=== PATIENT | male | born 1980 | race Caucasian/White ===

== ENCOUNTER 2021-04-10 23:11 | Day surgery (SDCO) | payer OTHER ==
[~2021-04-10] VITALS: Ht 185.4 cm; Wt 117.3 kg
[~2021-04-10 23:11] MED LIST: FENOFIBRATE PO; FENOFIBRATE160 MG PO; LISINOPRIL PO; LOVAZA1 GM PO; METFORMIN PO; NORCO 5-325 TA1 EACH PO; SIMVASTATIN40 MG PO; TRESIBA FL100 UNIT/1 SC; [UNRECOGNIZED DRUG - OTHER] SC; phenergan PO
[2021-04-11 00:55] LABS: AMPHETAMINES NEGATIVE (NEGATIVE); BARBITURATES NEGATIVE (NEGATIVE); ECSTASY (MDMA) NEGATIVE (NEGATIVE); MARIJUANA (THC) NEGATIVE (NEGATIVE); METHADONE NEGATIVE (NEGATIVE); OPIATES NEGATIVE (NEGATIVE); OXYCODONE NEGATIVE (NEGATIVE)
[2021-04-11 00:58] LABS: BILIRUBIN NEGATIVE (NEGATIVE); BLOOD NEGATIVE Ery/uL (NEGATIVE); CLARITY CLEAR (CLEAR); COLOR YELLOW (YELLOW); GLUCOSE (U) 3+ mg/dL (NORMAL); LEUKOCYTES NEGATIVE Leu/uL (NEGATIVE); NITRITE NEGATIVE (NEGATIVE); PROTEIN NEGATIVE (NEGATIVE); SPECIFIC GRAVITY 1.015 (1.001-1.030); UROBILINOGEN 0.2 mg/dL (0.2-1.0); pH 5.5 (5.0-9.0)
[2021-04-11 01:11] LABS: BASOPHIL 0.8 % (0-2); EOSINOPHIL 2.1 % (0-5); HCT 40.9 % (42.0-52.0); MCH 31.5 pg (25.0-31.0); MCHC 35.7 g/dL (32.0-36.0); MCV 88.1 fL (78.0-100.0); MONOCYTE 6.4 % (0-12); MPV 11.9 fL (6.0-9.5); NEUTROPHIL 63.3 % (41-80); NRBC 0.5; RBC 4.64 M/uL (4.70-6.00); RDW 15.4 % (11.5-14.0)
[2021-04-11 01:12] LABS: PLT 339 K/uL (150-400)
[2021-04-11 01:13] LABS: HGB 14.6 g/dl (13.2-18.0); WBC 11.8 K/uL (4.0-10.5)
[2021-04-11 02:49] LABS: LIPASE 785 U/L (73-393)
[2021-04-11 02:50] LABS: BILIRUBIN - TOTAL 2.5 mg/dL (0.2-1.0); CREATININE 0.75 mg/dL (0.67-1.17)
[2021-04-11 02:52] LABS: ALKALINE PHOSHATASE 75 U/L (46-116)
[2021-04-11 03:01] LABS: BUN 15 mg/dL (7-18)
[2021-04-11] MEDS ORDERED: PRINIVIL20 MG PO (03:46)
[2021-04-11] MEDS ORDERED: METFORMIN HCL1000 MG PO (03:47)
[2021-04-11] MEDS ORDERED: LOVAZA1 GM PO (03:48)
[2021-04-11] MEDS ORDERED: FENOFIBRATE160 MG PO (03:49)
[2021-04-11] MEDS ORDERED: ZOCOR40 M1 PO (03:50)
[2021-04-11] MEDS ORDERED: FARXIGA10 MG PO (03:51)
[2021-04-11] MEDS ORDERED: DRISDOL50000 UNIT PO (03:51)
[2021-04-11 14:32] LABS: CHOLESTEROL 349 mg/dL (<200); HDL 36 mg/dL (40-60); LDL - DIRECT 143 mg/dL (<100)
[2021-04-11 14:35] LABS: TRIGLYCERIDES >2000 mg/dL (<150)
[2021-04-12 05:41] LABS: BASOPHIL 0.5 % (0-2); LYMPHOCYTE 17.1 % (15-48); MONOCYTE 6.5 % (0-12); MPV 10.8 fL (6.0-9.5); NEUTROPHIL 72.1 % (41-80); NRBC 0; PLT 269 K/uL (150-400); RBC 4.11 M/uL (4.70-6.00); RDW 15.3 % (11.5-14.0); WBC 12.1 K/uL (4.0-10.5)
[2021-04-12 07:15] LABS: HGB 12.3 g/dl (13.2-18.0); MCH 29.9 pg (25.0-31.0); MCHC 33.4 g/dL (32.0-36.0)
[2021-04-12 20:05] LABS: ALBUMIN 3.5 g/dL (3.4-5.0); GLOBULIN (CALCULATION) 3.2 g/dL; POTASSIUM 4.3 mmol/L (3.5-5.1); TOTAL PROTEIN 6.7 g/dL (6.4-8.2)
[2021-04-12 20:06] LABS: BILIRUBIN - TOTAL 0.3 mg/dL (0.2-1.0)
[2021-04-13 04:27] LABS: BASOPHIL 0.6 % (0-2); EOSINOPHIL 2.6 % (0-5); HCT 33.3 % (42.0-52.0); HGB 12.3 g/dl (13.2-18.0); LYMPHOCYTE 17.7 % (15-48); MCHC 36.9 g/dL (32.0-36.0); MCV 89.3 fL (78.0-100.0); MONOCYTE 7.7 % (0-12); MPV 10.5 fL (6.0-9.5); NEUTROPHIL 70.7 % (41-80); NRBC 0; PLT 217 K/uL (150-400); RBC 3.73 M/uL (4.70-6.00); RDW 15.1 % (11.5-14.0); WBC 9.1 K/uL (4.0-10.5)
[2021-04-13 05:11] LABS: HBSAG SCREEN Negative (Negative); HEP A AB, IGM Negative (Negative); HEP B CORE AB, IGM Negative (Negative); HEP C VIRUS AB <0.1 (0.0-0.9)
[2021-04-13 05:28] LABS: ALBUMIN 2.3 g/dL (3.4-5.0); ALKALINE PHOSHATASE 62 U/L (46-116); BUN 13 mg/dL (7-18); BUN/CREAT RATIO (CALC) 15.1 RATIO; CHLORIDE 93 mmol/L (98-107); CO2 (BICARBONATE) 23 mmol/L (21-32); CREATININE 0.86 mg/dL (0.67-1.17); GLOBULIN (CALCULATION) 4.1 g/dL; GLUCOSE 247 mg/dL (74-106); LIPASE 722 U/L (73-393); POTASSIUM 3.7 mmol/L (3.5-5.1); TOTAL PROTEIN 6.4 g/dL (6.4-8.2)
== END 2021-04-13 13:40 | disposition home or self-care (01) ==
LOC: FER 23:11 → FMS 04-11 02:50
PROVIDERS: Family Medicine; Internal Medicine; ADMIT Internal Medicine
DX: K85.90 Acute pancreatitis without necrosis or infection, unspecified (principal); E78.1 Pure hyperglyceridemia; E11.9 Type 2 diabetes mellitus without complications; E78.5 Hyperlipidemia, unspecified; I10 Essential (primary) hypertension; L40.9 Psoriasis, unspecified; E80.6 Other disorders of bilirubin metabolism; K80.20 Calculus of gallbladder without cholecystitis without obstruction; K76.0 Fatty (change of) liver, not elsewhere classified; D17.71 Benign lipomatous neoplasm of kidney; K40.90 Unilateral inguinal hernia, without obstruction or gangrene, not specified as recurrent; E66.9 Obesity, unspecified; Z68.34 Body mass index [BMI] 34.0-34.9, adult; Z87.891 Personal history of nicotine dependence; Z79.84 Long term (current) use of oral hypoglycemic drugs; Z79.899 Other long term (current) drug therapy; Z88.5 Allergy status to narcotic agent; Z90.49 Acquired absence of other specified parts of digestive tract; Z20.822 Contact with and (suspected) exposure to COVID-19
CPT/HCPCS: 36415; 36600; 76705; 80053; 80061; 80074; 80305; 81003; 82803; 82962; 83690; 85025; G0378; G0480; J1170; J1650; J1885; J2405; J3411; J3475; J7030; J7120; U0002